=== PATIENT | male | born 1955 | race Caucasian/White ===

== ENCOUNTER 2019-08-22 02:08 | Emergency (ER) | payer OTHER ==
[~2019-08-22] VITALS: Ht 170.2 cm; Wt 83.9 kg
[2019-08-22 03:27] LABS: BASOPHILS ABSOLUTE AUTO 0.03 K/mm3 (0.00-0.23); BASOPHILS PERCENT AUTO 0 % (0-2); EOSINOPHILS ABSOLUTE AUTO 0.01 K/mm3 (0.00-0.68); EOSINOPHILS PERCENT AUTO 0 % (0-6); Hematocrit 42.8 % (37.0-53.0); Hemoglobin 14.6 g/dL (13.5-17.5); IMMATURE GRAN ABSOLUTE AUTO 0.07 K/mm3 (0.00-0.10); IMMATURE GRAN PERCENT AUTO 1 % (0-1); LYMPHOCYTES ABSOLUTE AUTO 1.15 K/mm3 (0.84-5.20); LYMPHOCYTES PERCENT AUTO 9 % (21-46); MONOCYTES ABSOLUTE AUTO 1.51 K/mm3 (0.16-1.47); MONOCYTES PERCENT AUTO 12 % (4-13); Mean Corpuscular HGB 31.5 pg (26.0-34.0); Mean Corpuscular HGB Conc 34.1 g/dL (31.5-36.5); Mean Corpuscular Volume 92 fL (80-100); NEUTROPHILS ABSOLUTE AUTO 10.32 K/mm3 (1.96-9.15); NEUTROPHILS PERCENT AUTO 79 % (41-73); Platelet Count 241 K/mm3 (150-400); RDW Coefficient Variation 14.3 % (11.7-14.2); RDW Standard Deviation 48.4 fL (35.1-46.3); Red Blood Cell Count 4.63 M/mm3 (4.30-5.90); White Blood Cell Count 13.09 K/mm3 (4.00-11.30)
[2019-08-22 03:42] LABS: Influenza A Positive (NEGATIVE); Influenza B Negative (NEGATIVE)
[2019-08-22 03:45] LABS: Alanine Aminotransfer (ALT/SGP 23 U/L (12-78); Albumin, Blood 3.4 g/dL (3.4-5.0); Alk Phos 90 U/L (50-136); Anion Gap 6 mmol/L (6-16); Aspartate Aminotrans (AST/SGOT 23 U/L (12-37); Bilirubin, Total 0.3 mg/dL (0.1-1.0); Blood Urea Nitrogen 19 mg/dL (8-24); Bun/Creatinine Ratio 22.9 (12.0-20.0); CO2, Blood 27 mmol/L (21-32); Calcium, Blood 8.5 mg/dL (8.5-10.1); Chloride, Blood 106 mmol/L (98-108); Creatinine, Blood 0.83 mg/dL (0.60-1.20); Globulin, Blood 3.5 g/dL (2.2-4.0); Glomerular Filtration Rate >60 (60-); Glucose, Blood 100 mg/dL (70-99); Potassium, Blood 3.5 mmol/L (3.5-5.5); Sodium, Blood 139 mmol/L (136-145); Total Protein, Blood 6.9 g/dL (6.4-8.2); Troponin I <0.015 ng/mL (0.000-0.040)
[2019-08-22] MEDS ORDERED: LISI20 PO (04:43)
[2019-08-22] MEDS ORDERED: METO50ER PO (04:43)
[2019-08-22] MEDS ORDERED: Mucinex600 MG PO (04:44)
[2019-08-22] MEDS ORDERED: Prednisone20 MG PO (06:27)
[2019-08-22] MEDS ORDERED: OSEL75CA PO (06:27)
== END 2019-08-22 06:50 | disposition home or self-care (01) ==
LOC: ER 02:08
PROVIDERS: Emergency Medicine
DX: J10.1 Influenza due to other identified influenza virus with other respiratory manifestations (principal); J44.1 Chronic obstructive pulmonary disease with (acute) exacerbation; Z88.0 Allergy status to penicillin
CPT/HCPCS: 36415; 71046; 80053; 84484; 85025; 87804; 93005; 93010; 94640; 96361; 96374; 99284-25; J1885; J7030; J7512

== ENCOUNTER 2019-11-25 20:24 | Inpatient (IN) | payer OTHER ==
[~2019-11-25] VITALS: Ht 172.7 cm; Wt 75.7 kg
[~2019-11-25 20:24] MED LIST: LISI20 PO; METO50ER PO; Mucinex600 MG PO; OSEL75CA PO; Prednisone20 MG PO
[2019-11-25 21:12] LABS: BASOPHILS ABSOLUTE AUTO 0.05 K/mm3 (0.00-0.23); BASOPHILS PERCENT AUTO 0 % (0-2); EOSINOPHILS ABSOLUTE AUTO 0.02 K/mm3 (0.00-0.68); EOSINOPHILS PERCENT AUTO 0 % (0-6); Hematocrit 47.5 % (37.0-53.0); Hemoglobin 16.6 g/dL (13.5-17.5); IMMATURE GRAN ABSOLUTE AUTO 0.08 K/mm3 (0.00-0.10); IMMATURE GRAN PERCENT AUTO 1 % (0-1); LYMPHOCYTES ABSOLUTE AUTO 3.85 K/mm3 (0.84-5.20); LYMPHOCYTES PERCENT AUTO 25 % (21-46); MONOCYTES ABSOLUTE AUTO 1.72 K/mm3 (0.16-1.47); MONOCYTES PERCENT AUTO 11 % (4-13); Mean Corpuscular HGB 31.6 pg (26.0-34.0); Mean Corpuscular HGB Conc 34.9 g/dL (31.5-36.5); Mean Corpuscular Volume 90 fL (80-100); Mean Platelet Volume 9.9 fL (9.1-12.4); NEUTROPHILS ABSOLUTE AUTO 9.42 K/mm3 (1.96-9.15); NEUTROPHILS PERCENT AUTO 62 % (41-73); Platelet Count 248 K/mm3 (150-400); RDW Coefficient Variation 14.1 % (11.7-14.2); RDW Standard Deviation 47.1 fL (35.1-46.3); Red Blood Cell Count 5.26 M/mm3 (4.30-5.90); White Blood Cell Count 15.14 K/mm3 (4.00-11.30)
[2019-11-25 21:35] LABS: Alanine Aminotransfer (ALT/SGP 95 U/L (12-78); Albumin, Blood 3.5 g/dL (3.4-5.0); Albumin/Globulin Ratio 0.9 (0.8-1.8); Alk Phos 104 U/L (50-136); Anion Gap 9 mmol/L (6-16); Aspartate Aminotrans (AST/SGOT 437 U/L (12-37); Bilirubin, Total 1.2 mg/dL (0.1-1.0); Blood Urea Nitrogen 12 mg/dL (8-24); Bun/Creatinine Ratio 16.6 (12.0-20.0); CO2, Blood 30 mmol/L (21-32); Calcium, Blood 8.7 mg/dL (8.5-10.1); Chloride, Blood 99 mmol/L (98-108); Creatinine, Blood 0.72 mg/dL (0.60-1.20); Globulin, Blood 3.8 g/dL (2.2-4.0); Glomerular Filtration Rate >60 (60-); Glucose, Blood 92 mg/dL (70-99); Potassium, Blood 3.4 mmol/L (3.5-5.5); Sodium, Blood 138 mmol/L (136-145); Total Protein, Blood 7.3 g/dL (6.4-8.2)
[2019-11-25] MEDS ORDERED: METO50ER PO (23:19)
[2019-11-25] MEDS ORDERED: Hytrin1 MG PO (23:20)
[2019-11-25] MEDS ORDERED: GUAI600T33 PO (23:20)
[2019-11-25] MEDS ORDERED: ALBU90OI INH (23:21)
[2019-11-25] MEDS ORDERED: Ipratropium Brom5 GM MC (23:22)
[2019-11-25 23:28] LABS: Creatine Kinase MB 177.3 ng/mL (0.0-3.6)
[2019-11-25 23:38] LABS: CPK Creatine Kinase 2227 U/L (39-308)
[2019-11-25 23:39] LABS: Troponin I >200.000 ng/mL (0.000-0.040)
--- NOTE | 2019-11-26 | NUR ---
PT TO ICU 16 @ 2244 WITH TECHNICAL DOCUMENTATION SPECIALIST RN, PT ALERT AND ORIENTED TO SELF, PLACE, EVENT AND FOLLOWING DIRECTIONS. O2 SATURATIONS>90% ON RA, PT DENIES SOB, PURSED LIP BREATHING NOTED. MONITOR SHOWS ST ELEVATIONS, HR 100-110, HTN WITH SBP 130'S-160'S. PT INITIALLY DENIED CP BUT REPORTED MILD 1/10 CHEST PRESSURE, @ 2300 PT REPORTS INCREASED PRESSURE TO 4/10, IMPROVED WITH NITRO PATCH PLACMENT. PT DENIES GI/ ISSUES, VOIDS INDEPENDENTLY WITH URINAL. PT SAWYER, REPOSITIONS SELF IN BED. TR BAND TO R RADIAL SITE, IN PLACE WITH 10CC AIR, SITE NON-TENDER, NO HEMATOMA NOTED, SEE HC CATH SITE MANAGEMENT.
--- NOTE | 2019-11-26 02:30 | NUR ---
PT WITH INCREASED WOB, PURSED LIP BREATHING, REPORTS SOB, APPEARS ANXIOUS, O2 SATURATIONS>92%, PT PLACED ON 6L PER NC FOR COMFORT. RT CALLED FOR BREATHING TREATMENT. CALL PLACED TO DR GOODMAN, ORDER FOR 20MG IV LASIX, TRAZADONE, AND BIPAP IF SOB CONTINUES, VERSED FOR ANXIETY R/T BIPAP. PT REPORTS IMPROVEMENT AFTER BREATHING TX AND LASIX ADMINISTRATION. PT RESTING AT THIS TIME.
--- NOTE | 2019-11-26 06:09 | NUR ---
CALL PLACED TO RODDY GOODMAN REGARDING MORNING EKG, NO NEW ORDERS AT THIS TIME.
[2019-11-26 07:14] LABS: BASOPHILS ABSOLUTE AUTO 0.02 K/mm3 (0.00-0.23); BASOPHILS PERCENT AUTO 0 % (0-2); EOSINOPHILS PERCENT AUTO 0 % (0-6); Hematocrit 41.8 % (37.0-53.0); Hemoglobin 14.2 g/dL (13.5-17.5); IMMATURE GRAN ABSOLUTE AUTO 0.07 K/mm3 (0.00-0.10); IMMATURE GRAN PERCENT AUTO 1 % (0-1); LYMPHOCYTES ABSOLUTE AUTO 1.59 K/mm3 (0.84-5.20); LYMPHOCYTES PERCENT AUTO 13 % (21-46); MONOCYTES ABSOLUTE AUTO 1.43 K/mm3 (0.16-1.47); MONOCYTES PERCENT AUTO 12 % (4-13); Mean Corpuscular HGB 30.9 pg (26.0-34.0); Mean Corpuscular Volume 91 fL (80-100); Mean Platelet Volume 9.9 fL (9.1-12.4); NEUTROPHILS ABSOLUTE AUTO 8.81 K/mm3 (1.96-9.15); NEUTROPHILS PERCENT AUTO 74 % (41-73); Platelet Count 230 K/mm3 (150-400); RDW Coefficient Variation 14.1 % (11.7-14.2); RDW Standard Deviation 47.3 fL (35.1-46.3); Red Blood Cell Count 4.59 M/mm3 (4.30-5.90); White Blood Cell Count 11.92 K/mm3 (4.00-11.30)
[2019-11-26 07:29] LABS: Anion Gap 6 mmol/L (6-16); Blood Urea Nitrogen 30 mg/dL (8-24); Bun/Creatinine Ratio 50.4 (12.0-20.0); CO2, Blood 28 mmol/L (21-32); Chloride, Blood 107 mmol/L (98-108); Glomerular Filtration Rate >60 (60-); Glucose, Blood 119 mg/dL (70-99); Potassium, Blood 3.6 mmol/L (3.5-5.5); Sodium, Blood 141 mmol/L (136-145)
--- NOTE | 2019-11-26 07:30 | NUR ---
SHIFT SUMMARY PT RESTED WELL POST TRAZADONE ADMINISTRATION, REMAINS AROUSABLE, ORIENTED TO SELF, EVENT, LOCATION AND FOLLOWING DIRECTIONS. PT ON 3L PER NC, BIPAP NOT NEED THIS SHIFT FOR SOB. MONITOR SHOWS ST ELEVATIONS, EKG THIS AM, SEE PREVIOUS NOTE, HR 120-130'S. PT DENIES CP AND REPORTS SOB MUCH IMPROVED. R RADIAL SITE C/D/I WITH OPSITE, WRIST IMMOBILIZER IN PLACE. PT TOLERATES PO INTAKE, SWALLOWS PILLS WHOLE, DENIES NAUSEA. VOIDS INDEPENDENTLY IN URINAL, REPOSITIONS SELF IN BED. REPORT GIVEN TO ERNESTINA MEZA.
[2019-11-26 07:35] LABS: Creatine Kinase MB 94.6 ng/mL (0.0-3.6)
--- NOTE | 2019-11-26 07:52 | NUR ---
0715-ASSUMED CARE OF PT. PT IS ALERT AND ORIENTED. DENIES CHEST PAIN. PT STILL ON HAVING SHORTNESS OF BREATH. MORE WITH EXERTION. ON 6LPM NC. R RADIAL ACCESS SITE IS STABLE. SCATTERED BRUISES NOTED AT THE RIGHT FOREARM.
[2019-11-26 07:59] LABS: Creatine Kinase MB Index 5.3 (0.0-4.0); Troponin I 89.4 ng/mL (0.000-0.040)
--- NOTE | 2019-11-26 09:10 | NUR ---
0805-DR. GOODMAN CAME BY TO SEE PATIENT. UPDATED HER OF PT'S HR AND BLOOD PRESSURE. LUNG SOUNDS. ORDERS RECEIVED. 0815-DR. GOODMAN AT BEDSIDE AT THIS TIME. PT WILL BE NPO, POSSIBLE CARDIOVERSION IF PT DOES NOT RESPOND TO AMIODARONE DRIP.
--- NOTE | 2019-11-26 10:08 | NUR ---
CALLED DR. GOODMAN TWICE STILL HAVE NOT RETURNED THIS NURSE'S CALL.
--- NOTE | 2019-11-26 10:21 | NUR ---
DR. GOODMAN CALLED BACK. INFORMED HER REGARDING PT'S BLOOD PRESSURE IN THE 70s-80s SYSTOLIC. PT HAS BEEN ASYMPTOMATIC WITH THIS LOW BLOOD PRESSURE. NO ORDERS RECEIEVED. INFORMED HER OF PT'S HR STILL IN THE 130s AND AFLUTTER DESPITE THE AMIODARONE DRIP.
--- NOTE | 2019-11-26 10:36 | NUR ---
PLACED PT'S STENT IN THE BAG WITH PT'S BELONGINGS. PLACED PT'S WATCH IN PT'S PANT POCKET.
--- NOTE | 2019-11-26 12:06 | NUR ---
Patient is lying in bed and alert. Patient tells me his medical history and the medical his of his and the struggles they have been going through and the affect all this has had on their thoughts and emotions. We talk about God, patient spiritual journey, their current marquita crisis and the long road ahead for both he and his . I listen empathically, normalize patient's experience, reinforce helpful attitudes and practices and provide companionship, pastoral service counselor and prayer. Patient responds well and shows signs of restored marquita.
--- NOTE | 2019-11-26 12:45 | NUR ---
ECHOTECH AT BEDSIDE DOING ECHOCARDIOGRAM.
--- NOTE | 2019-11-26 16:00 | NUR ---
1556-DR. GOODMAN CALLED REGARDING PATIENT. INFORMED HER OF PT'S BLOOD PRESSURE STILL DIPS IN THE 70s SYSTOLIC AT TIMES. PT IS STILL ASYMPTOMATIC. HR STILL IN THE 120s DESPITE AMIODARONE BOLUS WHICH IS STILL INFUSING AT THIS TIME. ORDERS RECEIVED.
[2019-11-26 16:46] LABS: Creatine Kinase MB 35.6 ng/mL (0.0-3.6)
[2019-11-26 17:02] LABS: Creatine Kinase MB Index 3.5 (0.0-4.0); Troponin I 46.7 ng/mL (0.000-0.040)
--- NOTE | 2019-11-26 18:15 | NUR ---
1800-PTT 130.3. HEPARIN WAS STOPPED. NOTIFIED [facility] PHARMACIST.
--- NOTE | 2019-11-26 18:17 | NUR ---
SHIFT SUMMARY: PT'S HR STILL IN THE 120S-130S. STILL ON AMIODARONE AT 0.5MG/MIN. HEPARIN DRIP WAS STOPPED AT 1800 DUE TO ELEVATED PTT @ 130.3. WILL RESTART AT 1900 PER PHARMACY. PT DENIES CHEST PAIN AT THIS TIME. PT'S BLOOD PRESSURE CURRENTLY AT 129/88. PT'S BP DROPS TO 70s-80s SYSTOLIC AT TIMES. PT HAS BEEN SYMPTOMATIC THEN. R RADIAL ACCESS SITE STABLE. PT WILL BE NPO POST- MIDNIGHT FOR POSSIBLE PROCEDURE IN THE MORNING. AFEBRILE. STILL SHORTNESS OF BREATH NOTED MOSTLY ON EXERTION. AFEBRILE. TROPONIN STILL ELEVATED BUT TRENDING DOWN.
--- NOTE | 2019-11-26 19:07 | NUR ---
HEPARIN DRIP WAS RESTARTED AT 1902 AT 13 UNITS/KG/HR. REPORT GIVEN TO SUSANA FOX
--- NOTE | 2019-11-26 19:33 | NUR ---
ASSUMED PT CARE FROM ERNESTINA HERNANDEZ RN AT 1915 PT RESTING IN BED TALKING ON PHONE. BEDSIDE REPORT GIVEN. AMIODARONE INFUSING AT 0.5MG/MIN AND HEPARIN GTT RESTARTED AT 13 UNITS/KG/HR WITH A WT OF 77KG. VERIFIED WITH ERNESTINA HERNANDEZ. R RADIAL SITE IS STABLE, SOFT, NON-TENDER, AND NO OOZING NOTED. ARM BOARD REMAINS IN PLACE. SCATTERED BRUISING NOTED TO RIGHT WRIST/FOREARM. PT APPEARS ALERT AND ORIENTED AND IS ABLE TO MAKE NEEDS KNOWN. PT REMAINS IN AFLUTTER WITH HR 120'S. SBP'S 90-120'S; SEE FLOWSHEET. 3L OXYGEN WITH BIOX 97%. PT DENIES CHEST PAIN, WELL SOB AT THIS TIME. CALL LIGHT WITHIN REACH. PT ABLE TO MAKE NEEDS KNOWN.
[2019-11-27 02:09] LABS: BASOPHILS ABSOLUTE AUTO 0.02 K/mm3 (0.00-0.23); BASOPHILS PERCENT AUTO 0 % (0-2); EOSINOPHILS ABSOLUTE AUTO 0.06 K/mm3 (0.00-0.68); EOSINOPHILS PERCENT AUTO 1 % (0-6); Hematocrit 38.6 % (37.0-53.0); IMMATURE GRAN ABSOLUTE AUTO 0.07 K/mm3 (0.00-0.10); IMMATURE GRAN PERCENT AUTO 1 % (0-1); LYMPHOCYTES ABSOLUTE AUTO 2.11 K/mm3 (0.84-5.20); LYMPHOCYTES PERCENT AUTO 21 % (21-46); MONOCYTES ABSOLUTE AUTO 1.07 K/mm3 (0.16-1.47); MONOCYTES PERCENT AUTO 11 % (4-13); Mean Corpuscular HGB 31.4 pg (26.0-34.0); Mean Corpuscular HGB Conc 33.7 g/dL (31.5-36.5); Mean Corpuscular Volume 93 fL (80-100); Mean Platelet Volume 9.9 fL (9.1-12.4); NEUTROPHILS ABSOLUTE AUTO 6.87 K/mm3 (1.96-9.15); NEUTROPHILS PERCENT AUTO 67 % (41-73); Platelet Count 199 K/mm3 (150-400); RDW Coefficient Variation 14.3 % (11.7-14.2); RDW Standard Deviation 49.6 fL (35.1-46.3); Red Blood Cell Count 4.14 M/mm3 (4.30-5.90)
[2019-11-27 02:25] LABS: Anion Gap 4 mmol/L (6-16); Blood Urea Nitrogen 25 mg/dL (8-24); Bun/Creatinine Ratio 27.1 (12.0-20.0); CO2, Blood 34 mmol/L (21-32); Calcium, Blood 8.2 mg/dL (8.5-10.1); Chloride, Blood 105 mmol/L (98-108); Creatinine, Blood 0.92 mg/dL (0.60-1.20); Glomerular Filtration Rate >60 (60-); Glucose, Blood 132 mg/dL (70-99); Potassium, Blood 3.5 mmol/L (3.5-5.5); Sodium, Blood 143 mmol/L (136-145)
--- NOTE | 2019-11-27 05:06 | NUR ---
END OF SHIFT SUMMARY NO SIGNFICANT CHANGES SINCE LAST ENTRY. PT HAS BEEN IN AND OUT OF AFLUTTER. VERY HARD TO DETERMINE WHEN PT CONVERTS HIS A FLUTTER CAN BE HARD TO DIFFERENTIATE D/T VERY MINUSCULE CHANGES. CURRENTLY NSR WITH BBB; HR 90-100'S. OXYGEN AT 2L VIA NC. PT HAS DENIED CHEST PAIN, N/V, AND SOB ALL SHIFT. NOTICED THAT PT BECOMES VERY DIAPHORETIC DURING SLEEP IN WHICH HE STATES THIS IS NORMAL FOR HIM. PT HAS BEEN NPO SINCE MIDNIGHT. MINIMAL URINE OUTPUT; 150CC EMPTIED FROM URINAL THIS SHIFT; DARK, YELLOW. PT IS ALERT AND ORIENTED AND ABLE TO MAKE NEEDS KNOWN. WILL CONTINUE TO MONITOR UNTIL REPORT IS HANDED OFF TO ONCOMING RN.
--- NOTE | 2019-11-27 07:15 | NUR ---
BEGINNING OF SHIFT Assumed care at 0700. Bedside report received from Cony MEZA. Pt A&O x 4. Pt on 2 LPM NC. Wears RA at baseline. Atrial flutter per monitor. Rate 105-115. BP stable. Amiodarone and heparin infusing per orders.
--- NOTE | 2019-11-27 09:14 | NUR ---
DR SEVERINO IN TO SEE PT Provider states LEON will not be done today. Plan to stop IV amiodarone and heparin. Pt states she would like pt to remain in the ICU today. Pt okay to eat breakfast.
--- NOTE | 2019-11-27 11:54 | NUR ---
UPDATE IV heparin stopped. Pt titrated to room air. SpO2 97%.
--- NOTE | 2019-11-27 17:30 | NUR ---
SUMMARY No acute changes since initial assessment. Pt OOB several times this shift to sit up in chair. Tolerates activity well. Pt currently on room air. On room air for majority of day. Pt remains in atrial flutter with HR between 105 and 115. BP stable. Will continue to closely monitor until care handoff and bedside report with oncoming RN.
--- NOTE | 2019-11-27 19:09 | NUR ---
ASSUMED PT CARE AT 1900 FROM SUSANA KAUFFMAN PT SITTING UP IN BED. ALERT AND ORIENTED AND ABLE TO MAKE NEEDS KNOWN. NSR WITH BBB; HR 90-100'S. BP'S STABLE; SEE FLOWSHEET. PT IS ON ROOM AIR WITH OXYGEN SATURATIONS AT 95%. R RADIAL SITE IS STABLE. PT DENIES ANY CHEST PAIN, N/V, WELL SOB AT THIS TIME. PT VOICED CONCERN REGARDING HIS CAR THAT IS PARKED OUT IN A HANDICAPPED PARKING SPACE AND WANTED TO ENSURE IT DIDN'T GET TOWED. INFORMED PT THAT I WOULD INFORM SECURITY IF THEY DO A WALK THROUGH [place]; HOWEVER, THERE SHOULDN'T BE A PROBLEM LONG HIS HANDICAP PASS IS HANGING IN CAR. WHICH HE STATED IT WAS. CALL LIGHT WITHIN REACH.
[2019-11-28 04:11] LABS: BASOPHILS ABSOLUTE AUTO 0.03 K/mm3 (0.00-0.23); BASOPHILS PERCENT AUTO 0 % (0-2); EOSINOPHILS ABSOLUTE AUTO 0.05 K/mm3 (0.00-0.68); EOSINOPHILS PERCENT AUTO 0 % (0-6); Hematocrit 36.9 % (37.0-53.0); Hemoglobin 12.5 g/dL (13.5-17.5); IMMATURE GRAN ABSOLUTE AUTO 0.07 K/mm3 (0.00-0.10); IMMATURE GRAN PERCENT AUTO 1 % (0-1); LYMPHOCYTES PERCENT AUTO 17 % (21-46); MONOCYTES ABSOLUTE AUTO 1.01 K/mm3 (0.16-1.47); MONOCYTES PERCENT AUTO 8 % (4-13); Mean Corpuscular HGB 31.4 pg (26.0-34.0); Mean Corpuscular HGB Conc 33.9 g/dL (31.5-36.5); Mean Corpuscular Volume 93 fL (80-100); Mean Platelet Volume 10.2 fL (9.1-12.4); NEUTROPHILS ABSOLUTE AUTO 8.79 K/mm3 (1.96-9.15); NEUTROPHILS PERCENT AUTO 73 % (41-73); Platelet Count 188 K/mm3 (150-400); RDW Coefficient Variation 14.1 % (11.7-14.2); RDW Standard Deviation 47.8 fL (35.1-46.3); Red Blood Cell Count 3.98 M/mm3 (4.30-5.90); White Blood Cell Count 12.05 K/mm3 (4.00-11.30)
[2019-11-28 04:29] LABS: Anion Gap 5 mmol/L (6-16); Blood Urea Nitrogen 24 mg/dL (8-24); Bun/Creatinine Ratio 30.9 (12.0-20.0); CO2, Blood 31 mmol/L (21-32); Calcium, Blood 8.2 mg/dL (8.5-10.1); Chloride, Blood 108 mmol/L (98-108); Creatinine, Blood 0.78 mg/dL (0.60-1.20); Glomerular Filtration Rate >60 (60-); Glucose, Blood 114 mg/dL (70-99); Potassium, Blood 3.2 mmol/L (3.5-5.5); Sodium, Blood 144 mmol/L (136-145)
--- NOTE | 2019-11-28 05:46 | NUR ---
END OF SHIFT SUMMARY NO SIGNIFICANT CHANGES NOTED THIS SHIFT. PT HAS REMAINED ON ROOM AIR WITH OXYGEN SATURATIONS MID 90'S. NSR WITH BBB WITH HR 80'S MOST OF SHIFT. BP'S STABLE; SEE FLOWSHEET. HR INCREASES WITH EXERTION, WELL PT BECOMES SOB EASILY WITH MINIMAL ACTIVITY. PURSED LIP BREATHING AND TRIPOD POSITIONING NOTED WHEN WORK OF BREATHING INCREASES. PT HAS BEEN ABLE TO SELF POSITION IN BED AND UTILIZES CALL LIGHT APPROPRIATELY. PT HAS DENIED CHEST PAIN THIS SHIFT. WILL CONTINUE TO MONITOR UNTIL REPORT IS HANDED OFF TO ONCOMING RN.
--- NOTE | 2019-11-28 07:54 | NUR ---
DR SEVERINO IN TO SEE PT States plan for echocardiogram today. States pt could potentially go home, but [facility], pt may not be discharged until tomorrow as he cannot miss a single dose of xarelto or brilinta.
--- NOTE | 2019-11-28 10:00 | NUR ---
UPDATE Pt okay to discharge today with samples of brilinta and xarelto. Other medications can be called in to retail pharmacy until pt can obtain meds from [place].
[2019-11-28] MEDS ORDERED: Metoprolol Tart25 MG PO (10:06)
[2019-11-28] MEDS ORDERED: Pacerone400 MG PO (10:09)
[2019-11-28] MEDS ORDERED: ASPI81CH PO (10:10)
[2019-11-28] MEDS ORDERED: NITR.4SL SL (10:11)
[2019-11-28] MEDS ORDERED: PANT40 PO (10:11)
[2019-11-28] MEDS ORDERED: ATOR80 PO (10:11)
[2019-11-28] MEDS ORDERED: TICA90TA PO (10:12)
[2019-11-28] MEDS ORDERED: XARELTO20 MG PO (10:12)
--- NOTE | 2019-11-28 10:53 | NUR ---
Echocardiogram completed.
--- NOTE | 2019-11-28 13:02 | NUR ---
DISCHARGE Pt discharged from ICU 16 at 1250. Pt accompanied to personal vehicle via wheelchair accomapnied by JERILYN Sarmiento. Medication orders faxed to [facility]. Two days worth of amiodarone, atorvastatin, and pantoprazole called to [facility] - per telephone orders from Dr Carr. Originally ordered HS metoprolol cancelled per telephone orders from Dr Carr. Pt has metoprolol at home for AM dose. Pt provided with two sample bottles each of rivaroxaban and ticagrelor. Pt verbalized understanding that he is to go to [facility] immediately after discharge and then obtain medications from [place] tomorrow morning. Pt verbalized understanding of remaining on ticagrelor and aspirin until civil cad designer states otherwise. Pt verbalized understanding that he must ensure he has adequate supply of these medications for vacations or holidays. Pt verbalized understanding of risks of missing these medications for even one day. Pt discharged with stent card in personal posession. Verbalized understanding that this is to be kept in his wallet. Pt verbalizes understanding that he is to follow up with cardiololgy and cardiac rehab. Pt verifies that [phone] is a good phone number to be reached at. Pt met with video game producer, Ingrid Romero, prior to discharge for cardiac diet education.
--- NOTE | 2019-11-28 15:47 | NUR ---
PT CALLED UNIT States he routinely takes 5 mg of terazosin every night. Asked if its okay to keep taking it. This RN placed call to Dr Carr to ask. Pt okay to keep taking this medication. Pt updated.
== END 2019-11-28 13:00 | disposition home or self-care (01) | DRG 247 ==
LOC: ER 20:24 → ICUW 21:23
PROVIDERS: Physician Assistant; ADMIT Internal Medicine Interventional Cardiology
PROC: 027035Z Dilation of Coronary Artery, One Artery with Two Drug-eluting Intraluminal Devices, Percutaneous Approach (ICD-10-PCS; principal; 2019-11-25)
PROC: 02703ZZ Dilation of Coronary Artery, One Artery, Percutaneous Approach (ICD-10-PCS; 2019-11-25)
PROC: B240ZZ3 Ultrasonography of Single Coronary Artery, Intravascular (ICD-10-PCS; 2019-11-25)
PROC: B2111ZZ Fluoroscopy of Multiple Coronary Arteries using Low Osmolar Contrast (ICD-10-PCS; 2019-11-25)
DX: I21.02 ST elevation (STEMI) myocardial infarction involving left anterior descending coronary artery (principal); I48.92 Unspecified atrial flutter; I50.20 Unspecified systolic (congestive) heart failure; J43.9 Emphysema, unspecified; I51.3 Intracardiac thrombosis, not elsewhere classified; I45.10 Unspecified right bundle-branch block; F17.210 Nicotine dependence, cigarettes, uncomplicated; E78.5 Hyperlipidemia, unspecified; I11.0 Hypertensive heart disease with heart failure; I50.9 Heart failure, unspecified
CPT/HCPCS: 36415; 71045; 80048; 80053; 82550; 82553; 83036; 83690; 83880; 84484; 85025; 85347; 85730; 92941; 92978; 93005; 93010; 93308; 93321; 94640; 96374; 99152; 99153; 99285-25; A9270; A9270-GY; C1725; C1753; C1769; C1874; C1887; C1894; C8929; J0282; J1644; J1940; J2250; J3010; J7030; J7040; J7060; Q9957; Q9967

== ENCOUNTER 2020-12-25 03:55 | Emergency (ER) | payer OTHER ==
[~2020-12-25] VITALS: Ht 172.7 cm; Wt 81.7 kg
[~2020-12-25 03:55] MED LIST changes: +ALBU90OI INH; +ASPI81CH PO; +ATOR80 PO; +GUAI600T33 PO; +Hytrin1 MG PO; +Ipratropium Brom5 GM MC; +Metoprolol Tart25 MG PO; +NITR.4SL SL; +PANT40 PO; +Pacerone400 MG PO; +TICA90TA PO; +XARELTO20 MG PO
[2020-12-25 04:55] LABS: BASOPHILS ABSOLUTE AUTO 0.02 K/mm3 (0.00-0.23); BASOPHILS PERCENT AUTO 0 % (0-2); EOSINOPHILS ABSOLUTE AUTO 0.02 K/mm3 (0.00-0.68); EOSINOPHILS PERCENT AUTO 0 % (0-6); Hematocrit 34.1 % (37.0-53.0); Hemoglobin 10.8 g/dL (13.5-17.5); IMMATURE GRAN ABSOLUTE AUTO 0.02 K/mm3 (0.00-0.10); IMMATURE GRAN PERCENT AUTO 0 % (0-1); LYMPHOCYTES ABSOLUTE AUTO 2.08 K/mm3 (0.84-5.20); LYMPHOCYTES PERCENT AUTO 27 % (21-46); MONOCYTES ABSOLUTE AUTO 0.91 K/mm3 (0.16-1.47); MONOCYTES PERCENT AUTO 12 % (4-13); Mean Corpuscular HGB 29.5 pg (26.0-34.0); Mean Corpuscular HGB Conc 31.7 g/dL (31.5-36.5); Mean Corpuscular Volume 93 fL (80-100); Mean Platelet Volume 8.8 fL (9.1-12.4); NEUTROPHILS ABSOLUTE AUTO 4.56 K/mm3 (1.96-9.15); NEUTROPHILS PERCENT AUTO 60 % (41-73); Platelet Count 317 K/mm3 (150-400); RDW Coefficient Variation 14.8 % (11.7-14.2); RDW Standard Deviation 51.2 fL (35.1-46.3); Red Blood Cell Count 3.66 M/mm3 (4.30-5.90); White Blood Cell Count 7.61 K/mm3 (4.00-11.30)
[2020-12-25 05:19] LABS: Anion Gap 5 mmol/L (6-16); Blood Urea Nitrogen 12 mg/dL (8-24); Bun/Creatinine Ratio 11.9 (12.0-20.0); CO2, Blood 27 mmol/L (21-32); Calcium, Blood 8.4 mg/dL (8.5-10.1); Chloride, Blood 108 mmol/L (98-108); Creatinine, Blood 1.01 mg/dL (0.60-1.20); Glomerular Filtration Rate >60 (60-); Glucose, Blood 84 mg/dL (70-99); Potassium, Blood 3.4 mmol/L (3.5-5.5); Sodium, Blood 140 mmol/L (136-145)
[2020-12-25] MEDS ORDERED: LIDO700A20 TOP (06:08)
== END 2020-12-25 06:20 | disposition home or self-care (01) ==
LOC: ER 03:55
PROVIDERS: Emergency Medicine
DX: R07.89 Other chest pain (principal); R91.1 Solitary pulmonary nodule; J43.9 Emphysema, unspecified; I10 Essential (primary) hypertension; E78.00 Pure hypercholesterolemia, unspecified; I25.2 Old myocardial infarction; Z88.0 Allergy status to penicillin; Z79.82 Long term (current) use of aspirin; Z79.899 Other long term (current) drug therapy; Z87.891 Personal history of nicotine dependence; W01.190A Fall on same level from slipping, tripping and stumbling with subsequent striking against furniture, initial encounter
CPT/HCPCS: 71260; 80048; 85025; 99284-25; A9270; Q9967

== ENCOUNTER 2021-01-31 01:07 | Emergency (ER) | payer OTHER ==
[~2021-01-31] VITALS: Ht 172.7 cm; Wt 77.1 kg
[~2021-01-31 01:07] MED LIST changes: +LIDO700A20 TOP
[2021-01-31 02:00] LABS: BASOPHILS ABSOLUTE AUTO 0.02 K/mm3 (0.00-0.23); BASOPHILS PERCENT AUTO 0 % (0-2); EOSINOPHILS ABSOLUTE AUTO 0.03 K/mm3 (0.00-0.68); EOSINOPHILS PERCENT AUTO 0 % (0-6); Hematocrit 36.9 % (37.0-53.0); Hemoglobin 11.3 g/dL (13.5-17.5); IMMATURE GRAN ABSOLUTE AUTO 0.03 K/mm3 (0.00-0.10); IMMATURE GRAN PERCENT AUTO 0 % (0-1); LYMPHOCYTES ABSOLUTE AUTO 2.04 K/mm3 (0.84-5.20); LYMPHOCYTES PERCENT AUTO 29 % (21-46); MONOCYTES ABSOLUTE AUTO 0.68 K/mm3 (0.16-1.47); MONOCYTES PERCENT AUTO 10 % (4-13); Mean Corpuscular HGB 27.2 pg (26.0-34.0); Mean Corpuscular HGB Conc 30.6 g/dL (31.5-36.5); Mean Corpuscular Volume 89 fL (80-100); Mean Platelet Volume 9.1 fL (9.1-12.4); NEUTROPHILS ABSOLUTE AUTO 4.24 K/mm3 (1.96-9.15); NEUTROPHILS PERCENT AUTO 60 % (41-73); Platelet Count 243 K/mm3 (150-400); RDW Coefficient Variation 16.3 % (11.7-14.2); RDW Standard Deviation 53.1 fL (35.1-46.3); Red Blood Cell Count 4.15 M/mm3 (4.30-5.90); White Blood Cell Count 7.04 K/mm3 (4.00-11.30)
[2021-01-31 02:25] LABS: Alanine Aminotransfer (ALT/SGP 24 U/L (12-78); Albumin, Blood 3.4 g/dL (3.4-5.0); Albumin/Globulin Ratio 0.9 (0.8-1.8); Alk Phos 109 U/L (50-136); Anion Gap 5 mmol/L (6-16); Aspartate Aminotrans (AST/SGOT 31 U/L (12-37); Bilirubin, Total 0.7 mg/dL (0.1-1.0); Blood Urea Nitrogen 20 mg/dL (8-24); Bun/Creatinine Ratio 21.1 (12.0-20.0); CO2, Blood 29 mmol/L (21-32); Calcium, Blood 8.2 mg/dL (8.5-10.1); Chloride, Blood 107 mmol/L (98-108); Creatinine, Blood 0.95 mg/dL (0.60-1.20); Globulin, Blood 3.7 g/dL (2.2-4.0); Glomerular Filtration Rate >60 (60-); Glucose, Blood 94 mg/dL (70-99); Potassium, Blood 3.4 mmol/L (3.5-5.5); Sodium, Blood 141 mmol/L (136-145); Total Protein, Blood 7.1 g/dL (6.4-8.2); Troponin I <0.015 ng/mL (0.000-0.040)
[2021-01-31] MEDS ORDERED: Colace250 MG PO (07:08)
[2021-01-31] MEDS ORDERED: HYDR1TAB94 PO (07:08)
[2021-01-31] MEDS ORDERED: ONDA4ODT MM (07:08)
== END 2021-01-31 07:19 | disposition home or self-care (01) ==
LOC: ER 01:07
PROVIDERS: Emergency Medicine
DX: K85.90 Acute pancreatitis without necrosis or infection, unspecified (principal); J43.9 Emphysema, unspecified; I10 Essential (primary) hypertension; E78.00 Pure hypercholesterolemia, unspecified; I25.2 Old myocardial infarction; Z88.0 Allergy status to penicillin; Z79.82 Long term (current) use of aspirin; Z79.899 Other long term (current) drug therapy; Z87.891 Personal history of nicotine dependence
CPT/HCPCS: 36415; 71046; 74177; 76705; 80053; 83690; 83880; 84484; 85025; 93005; 93010; 96374-59; 96375; 96376; 99285-25; A9270; J1170; J2405; Q9967

== ENCOUNTER 2021-02-27 08:59 | Inpatient (IN) | payer OTHER ==
[~2021-02-27] VITALS: Ht 172.7 cm; Wt 79.3 kg
[~2021-02-27 08:59] MED LIST changes: +Colace250 MG PO; +HYDR1TAB94 PO; +ONDA4ODT MM
[2021-02-27 09:22] LABS: BASOPHILS ABSOLUTE AUTO 0.02 K/mm3 (0.00-0.23); BASOPHILS PERCENT AUTO 0 % (0-2); EOSINOPHILS ABSOLUTE AUTO 0.01 K/mm3 (0.00-0.68); EOSINOPHILS PERCENT AUTO 0 % (0-6); Hematocrit 33.7 % (37.0-53.0); Hemoglobin 10.4 g/dL (13.5-17.5); IMMATURE GRAN ABSOLUTE AUTO 0.04 K/mm3 (0.00-0.10); IMMATURE GRAN PERCENT AUTO 0 % (0-1); LYMPHOCYTES ABSOLUTE AUTO 1.58 K/mm3 (0.84-5.20); LYMPHOCYTES PERCENT AUTO 12 % (21-46); MONOCYTES ABSOLUTE AUTO 1.23 K/mm3 (0.16-1.47); MONOCYTES PERCENT AUTO 10 % (4-13); Mean Corpuscular HGB 25.8 pg (26.0-34.0); Mean Corpuscular HGB Conc 30.9 g/dL (31.5-36.5); Mean Corpuscular Volume 84 fL (80-100); Mean Platelet Volume 9.2 fL (9.1-12.4); NEUTROPHILS PERCENT AUTO 78 % (41-73); Platelet Count 317 K/mm3 (150-400); RDW Coefficient Variation 16.6 % (11.7-14.2); RDW Standard Deviation 51.1 fL (35.1-46.3); Red Blood Cell Count 4.03 M/mm3 (4.30-5.90); White Blood Cell Count 12.88 K/mm3 (4.00-11.30)
[2021-02-27 09:55] LABS: Alanine Aminotransfer (ALT/SGP 27 U/L (12-78); Albumin, Blood 3.2 g/dL (3.4-5.0); Albumin/Globulin Ratio 0.9 (0.8-1.8); Alk Phos 105 U/L (50-136); Anion Gap 5 mmol/L (6-16); Aspartate Aminotrans (AST/SGOT 21 U/L (12-37); Bilirubin, Total 0.7 mg/dL (0.1-1.0); Blood Urea Nitrogen 19 mg/dL (8-24); Bun/Creatinine Ratio 20.3 (12.0-20.0); CO2, Blood 27 mmol/L (21-32); Calcium, Blood 8.5 mg/dL (8.5-10.1); Chloride, Blood 109 mmol/L (98-108); Creatinine, Blood 0.94 mg/dL (0.60-1.20); Globulin, Blood 3.6 g/dL (2.2-4.0); Glomerular Filtration Rate >60 (60-); Glucose, Blood 86 mg/dL (70-99); Potassium, Blood 3.5 mmol/L (3.5-5.5); Sodium, Blood 141 mmol/L (136-145); Total Protein, Blood 6.8 g/dL (6.4-8.2)
[2021-02-27 11:49] LABS: Cholesterol 110 mg/dL (50-200); Triglycerides 46 mg/dL (30-160)
[2021-02-27] MEDS ORDERED: ALBU90OI INH (12:06)
[2021-02-27] MEDS ORDERED: Amiodarone HCl200 MG PO (12:06)
[2021-02-27] MEDS ORDERED: Aspir 8181 MG PO (12:06)
[2021-02-27] MEDS ORDERED: CLOP75 PO (12:07)
[2021-02-27] MEDS ORDERED: ATOR40TA PO (12:07)
[2021-02-27] MEDS ORDERED: FISH OIL 1,2001 EAC7 PO (12:07)
[2021-02-27] MEDS ORDERED: DULERA 200 MCG-13 GM INH (12:08)
[2021-02-27] MEDS ORDERED: GUAI600T33 PO (12:08)
[2021-02-27] MEDS ORDERED: HYDROCODONE-AC1 EA10 PO (12:09)
[2021-02-27] MEDS ORDERED: NITR.4SL SL (12:10)
[2021-02-27] MEDS ORDERED: ISOSORBIDE MONO60 MG PO (12:10)
[2021-02-27] MEDS ORDERED: Hair, Skin & N1 EACH PO (12:10)
[2021-02-27] MEDS ORDERED: METO50 PO (12:10)
[2021-02-27] MEDS ORDERED: SPIRIVA RESPIMAT4 G3 INH (12:11)
[2021-02-27] MEDS ORDERED: TERA5 PO (12:11)
--- NOTE | 2021-02-27 15:00 | NUR ---
PT ARRIVED FROM ER VIA W/C. ABLE TO STAND AND TRANSFER TO THE BED. ORIENTED TO ROOM AND CALL SYSTEM. BED IN LOWEST POSITION AND CALL GRIMM IN REACH. WILL MONITOR AND CHECK FREQUENTLY
[2021-02-27] MEDS ORDERED: LISI20 PO (15:49)
--- NOTE | 2021-02-27 18:21 | NUR ---
PT REMAINS A/O, HE IS KAW, NO HEARING AIDS. PLEASANT AND COOPERATIVE, USES CALL GRIMM APPROPRIATELY. PT IS INDEPENDENT IN THE ROOM, REPORTS EPIGASTRIC PAIN, RECEIVED 50 OLIVIA OF IV FENTANYL AT APPROX 1800, WILL MONITOR FOR EFFECTIVENESS.
--- NOTE | 2021-02-27 19:44 | NUR ---
CALLED HOSPITALIST VERIFIED THAT I CAN GIVE PT HIS PO MED WITH A SIP OF WATER, DESPITE NPO STATUS
[2021-02-28 03:23] LABS: Stool Occult Blood Guaiac 1 Neg (Neg)
--- NOTE | 2021-02-28 05:05 | NUR ---
SHIFT SUMMARY ADMITTED FOR ACUTE PANCREATITIS. FULL CODE. STOOL SAMPLE RETRIEVED THIS SHIFT, NEGATIVE FOR GUAIAC. HE IS INDEPENDENT IN THE ROOM. NS INFUSING ORDERED. I HAVE GIVEN IV PAIN MEDICATION THIS SHIFT. HE IS NPO. NO NEW CONCERNS THIS SHIFT
[2021-02-28 05:39] LABS: BASOPHILS ABSOLUTE AUTO 0.03 K/mm3 (0.00-0.23); BASOPHILS PERCENT AUTO 0 % (0-2); EOSINOPHILS ABSOLUTE AUTO 0.05 K/mm3 (0.00-0.68); EOSINOPHILS PERCENT AUTO 1 % (0-6); Hematocrit 32.8 % (37.0-53.0); IMMATURE GRAN ABSOLUTE AUTO 0.03 K/mm3 (0.00-0.10); IMMATURE GRAN PERCENT AUTO 0 % (0-1); LYMPHOCYTES ABSOLUTE AUTO 1.13 K/mm3 (0.84-5.20); LYMPHOCYTES PERCENT AUTO 13 % (21-46); MONOCYTES ABSOLUTE AUTO 0.78 K/mm3 (0.16-1.47); MONOCYTES PERCENT AUTO 9 % (4-13); Mean Corpuscular HGB 25.6 pg (26.0-34.0); Mean Corpuscular HGB Conc 30.5 g/dL (31.5-36.5); Mean Corpuscular Volume 84 fL (80-100); Mean Platelet Volume 9.4 fL (9.1-12.4); NEUTROPHILS ABSOLUTE AUTO 6.85 K/mm3 (1.96-9.15); NEUTROPHILS PERCENT AUTO 77 % (41-73); Platelet Count 276 K/mm3 (150-400); RDW Coefficient Variation 16.7 % (11.7-14.2); RDW Standard Deviation 51.7 fL (35.1-46.3); Red Blood Cell Count 3.91 M/mm3 (4.30-5.90); White Blood Cell Count 8.87 K/mm3 (4.00-11.30)
[2021-02-28 05:58] LABS: Alanine Aminotransfer (ALT/SGP 23 U/L (12-78); Albumin, Blood 2.7 g/dL (3.4-5.0); Albumin/Globulin Ratio 0.8 (0.8-1.8); Alk Phos 96 U/L (50-136); Anion Gap 6 mmol/L (6-16); Aspartate Aminotrans (AST/SGOT 19 U/L (12-37); Bilirubin, Total 0.6 mg/dL (0.1-1.0); Blood Urea Nitrogen 12 mg/dL (8-24); Bun/Creatinine Ratio 14.7 (12.0-20.0); CO2, Blood 25 mmol/L (21-32); Calcium, Blood 8.2 mg/dL (8.5-10.1); Chloride, Blood 110 mmol/L (98-108); Creatinine, Blood 0.82 mg/dL (0.60-1.20); Globulin, Blood 3.6 g/dL (2.2-4.0); Glomerular Filtration Rate >60 (60-); Glucose, Blood 63 mg/dL (70-99); Magnesium, Blood 2.1 mg/dL (1.6-2.4); Potassium, Blood 3.6 mmol/L (3.5-5.5); Sodium, Blood 141 mmol/L (136-145); Total Protein, Blood 6.3 g/dL (6.4-8.2)
--- NOTE | 2021-02-28 17:58 | NUR ---
PATIENT IS A/O & INDEPEDENT IN ROOM. PATIENT WAS STARTED ON AN PO ANTIBIOTIC THIS SHIFT AND HAS BEEN TOLERATING WELL.PATIENT IS STILL NPO WITH CHIPS AND SIPS. PATIENT CONTINUES TO RECEIVE 125ML/HR NS. PATIENT'S PAIN HAS BEEN MONITORED THROUGH OUT THE SHIFT WITH MEDICATION AND REPOSTIONING.
--- NOTE | 2021-03-01 05:09 | NUR ---
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 KPAd provided & helful effect reported. NPO except few ice & sip with meds. Discussed need to avoid ETOH if it is causing pancreatits. Verbalized understanding,
--- NOTE | 2021-03-01 14:46 | NUR ---
ASSUMED CARE OF PT FROM DEBBIE HARRIS RN AT THIS TIME.
--- NOTE | 2021-03-01 18:34 | NUR ---
SHIFT SUMMARY PT A/O X3; PLEASANT AND COOPERATIVE WITH CARE. C/O PAIN OFTEN IN THE UPPER ABD AND TREATED PER EMR WITH GOOD EFFECT. TOLERATING CLEAR LIQUID DIET WELL. VSS. WILL REPORT TO ADEOLA MEZA.
--- NOTE | 2021-03-02 05:06 | NUR ---
MINIBUS DRIVER SUMMARY PT AAOX4 AND PLEASANT. TOLERATING CLEAR LIQUID DIET WITH NO ISSUES. PAIN CONTROL HAS BEEN BETTER TONIGHT, PT ONLY REQUIRING IV DILAUDID EVERY 5 HOURS. PT HOPING TO ADVANCE DIET LATER TODAY. VSS, WILL CONTINUE TO MONITOR.
[2021-03-02 05:51] LABS: BASOPHILS ABSOLUTE AUTO 0.01 K/mm3 (0.00-0.23); BASOPHILS PERCENT AUTO 0 % (0-2); EOSINOPHILS ABSOLUTE AUTO 0.09 K/mm3 (0.00-0.68); EOSINOPHILS PERCENT AUTO 1 % (0-6); Hematocrit 32.6 % (37.0-53.0); Hemoglobin 9.8 g/dL (13.5-17.5); IMMATURE GRAN ABSOLUTE AUTO 0.02 K/mm3 (0.00-0.10); IMMATURE GRAN PERCENT AUTO 0 % (0-1); LYMPHOCYTES ABSOLUTE AUTO 1.96 K/mm3 (0.84-5.20); LYMPHOCYTES PERCENT AUTO 29 % (21-46); MONOCYTES ABSOLUTE AUTO 0.83 K/mm3 (0.16-1.47); MONOCYTES PERCENT AUTO 12 % (4-13); Mean Corpuscular HGB 25.1 pg (26.0-34.0); Mean Corpuscular HGB Conc 30.1 g/dL (31.5-36.5); Mean Corpuscular Volume 84 fL (80-100); Mean Platelet Volume 9.6 fL (9.1-12.4); NEUTROPHILS PERCENT AUTO 57 % (41-73); Platelet Count 256 K/mm3 (150-400); RDW Coefficient Variation 16.8 % (11.7-14.2); RDW Standard Deviation 50.9 fL (35.1-46.3); White Blood Cell Count 6.81 K/mm3 (4.00-11.30)
[2021-03-02 06:14] LABS: Alanine Aminotransfer (ALT/SGP 27 U/L (12-78); Albumin, Blood 2.6 g/dL (3.4-5.0); Albumin/Globulin Ratio 0.7 (0.8-1.8); Alk Phos 100 U/L (50-136); Anion Gap 6 mmol/L (6-16); Aspartate Aminotrans (AST/SGOT 24 U/L (12-37); Bilirubin, Total 0.5 mg/dL (0.1-1.0); Blood Urea Nitrogen 6 mg/dL (8-24); Bun/Creatinine Ratio 6.8 (12.0-20.0); CO2, Blood 25 mmol/L (21-32); Calcium, Blood 8.2 mg/dL (8.5-10.1); Chloride, Blood 112 mmol/L (98-108); Creatinine, Blood 0.88 mg/dL (0.60-1.20); Globulin, Blood 3.5 g/dL (2.2-4.0); Glomerular Filtration Rate >60 (60-); Glucose, Blood 102 mg/dL (70-99); Potassium, Blood 3.5 mmol/L (3.5-5.5); Sodium, Blood 143 mmol/L (136-145); Total Protein, Blood 6.1 g/dL (6.4-8.2)
--- NOTE | 2021-03-02 16:50 | NUR ---
SHIFT SUMMARY NO ACUTE CHANGES T/O SHIFT, A&O, COOPERATIVE c CARE, INDEPENDENT IN ROOM. PT REPORTS PAIN IN ABD AND IS TREATED PER EMAR AND HEATING PAD. HE DOES STATE THAT PAIN IS WORSE c MOVEMENT/PALPATION AND NOT SO MUCH EATING. ADVANCED TO FULL LIQUID DIET AND IS TOLERATING THIS WELL. NO N/V NOTED. FLUIDS CONTINUE @ 125 ML/HR. PT IS CURRENTLY RESTING IN BED c CALL LIGHT WITHIN REACH. CALLS APPROPRIATELY.
--- NOTE | 2021-03-03 04:12 | NUR ---
SHIFT SUMMARY ADMITTED FOR PANCREATITIS. FULL CODE. PLAN IS TO ADVANCE DIET TO SEE IF TOLERATED, CURRENTLY FULL LIQUID DIET. NS INFUSING @ 125 ML/HR. HE REQUESTED THE IV PAIN MEDICATION X2 THIS SHIFT. HE IS INDEPENDENT IN THE ROOM. .
[2021-03-03] MEDS ORDERED: METO50ER PO (10:16)
[2021-03-03] MEDS ORDERED: LEVFLO500 PO (10:17)
--- NOTE | 2021-03-03 13:35 | NUR ---
DISCHARGE SUMMARY PT DISCHARGE THIS SHIFT AT 1250. PT VERBALIZED UNDERSTANDING OF DISCHARGE ORDERS AND TEACHINGS. NO COMPLAINTS OR CONCERNS NOTED FROM PT DURING DISCHARGE PROCESS. DENIES ANY DISCOMFORT. IV LINE DISCONTINUED PRIOR TO DISCHARGE. PT TOLERATED FULL LIQUID DIET FOR BREAKFAST AND LUNCH. NO C/O ANY N&V OR ANY OTHER ABDOMINAL DISCOMFORT PRIOR TO DISCHARGE. DISCHARGE PACKET GIVEN TO PATIENT UPON DISCHARGE.
== END 2021-03-03 13:02 | disposition home or self-care (01) | DRG 438 ==
LOC: ER 08:59 → MEDS 12:28
PROVIDERS: Internal Medicine; Nurse Practitioner Acute Care; Physician Assistant; Student in an Organized Health Care Education/Training Program; ADMIT Internal Medicine
DX: K85.20 Alcohol induced acute pancreatitis without necrosis or infection (principal); J18.9 Pneumonia, unspecified organism; I48.92 Unspecified atrial flutter; I50.22 Chronic systolic (congestive) heart failure; R65.10 Systemic inflammatory response syndrome (SIRS) of non-infectious origin without acute organ dysfunction; K92.0 Hematemesis; J43.9 Emphysema, unspecified; E78.5 Hyperlipidemia, unspecified; D63.8 Anemia in other chronic diseases classified elsewhere; K21.9 Gastro-esophageal reflux disease without esophagitis; I11.0 Hypertensive heart disease with heart failure; N40.0 Benign prostatic hyperplasia without lower urinary tract symptoms; L40.9 Psoriasis, unspecified; I25.10 Atherosclerotic heart disease of native coronary artery without angina pectoris; Z71.41 Alcohol abuse counseling and surveillance of alcoholic; I25.2 Old myocardial infarction; Z87.891 Personal history of nicotine dependence; Z95.5 Presence of coronary angioplasty implant and graft; Z98.890 Other specified postprocedural states; Z88.0 Allergy status to penicillin; Z79.82 Long term (current) use of aspirin; Z79.899 Other long term (current) drug therapy
CPT/HCPCS: 36415; 74176; 80053; 82272; 82465; 83690; 83735; 84478; 84484; 85025; 94640; 94664; 94760; 96374; 96375; 96376; 99285-25; A9270; J1170; J1650; J1940; J3010; J7030

== ENCOUNTER 2022-05-19 09:06 | Emergency (ER) | payer OTHER ==
[~2022-05-19] VITALS: Ht 172.7 cm; Wt 58.5 kg
[~2022-05-19 09:06] MED LIST changes: +ATOR40TA PO; +Amiodarone HCl200 MG PO; +Aspir 8181 MG PO; +CLOP75 PO; +DULERA 200 MCG-13 GM INH; +FISH OIL 1,2001 EAC7 PO; +HYDROCODONE-AC1 EA10 PO; +Hair, Skin & N1 EACH PO; +ISOSORBIDE MONO60 MG PO; +LEVFLO500 PO; +METO50 PO; +SPIRIVA RESPIMAT4 G3 INH; +TERA5 PO
[2022-05-19 09:58] LABS: BASOPHILS ABSOLUTE AUTO 0.05 K/mm3 (0.00-0.23); BASOPHILS PERCENT AUTO 1 % (0-2); EOSINOPHILS PERCENT AUTO 0 % (0-6); Hematocrit 39.9 % (37.0-53.0); Hemoglobin 13.4 g/dL (13.5-17.5); IMMATURE GRAN ABSOLUTE AUTO 0.26 K/mm3 (0.00-0.10); IMMATURE GRAN PERCENT AUTO 3 % (0-1); LYMPHOCYTES ABSOLUTE AUTO 2.39 K/mm3 (0.84-5.20); LYMPHOCYTES PERCENT AUTO 28 % (21-46); MONOCYTES ABSOLUTE AUTO 0.92 K/mm3 (0.16-1.47); MONOCYTES PERCENT AUTO 11 % (4-13); Mean Corpuscular HGB 36.9 pg (26.0-34.0); Mean Corpuscular HGB Conc 33.6 g/dL (31.5-36.5); Mean Corpuscular Volume 110 fL (80-100); Mean Platelet Volume 10.5 fL (9.1-12.4); NEUTROPHILS ABSOLUTE AUTO 4.96 K/mm3 (1.96-9.15); NEUTROPHILS PERCENT AUTO 58 % (41-73); Platelet Count 235 K/mm3 (150-400); RDW Standard Deviation 61.9 fL (35.1-46.3); Red Blood Cell Count 3.63 M/mm3 (4.30-5.90); White Blood Cell Count 8.58 K/mm3 (4.00-11.30)
[2022-05-19 10:08] LABS: Bun/Creatinine Ratio 14.1 (12.0-20.0); Calcium, Blood 9.2 mg/dL (8.5-10.1); Creatinine, Blood 0.57 mg/dL (0.60-1.20); Potassium, Blood 3.4 mmol/L (3.5-5.5)
[2022-05-19] MEDS ORDERED: CEFD300 PO (10:54)
[2022-05-19] MEDS ORDERED: HYDR1TAB94 PO (10:56)
--- NOTE | 2022-05-19 12:00 | NUR ---
Brief visit to ER to provide pt with community resource information and discuss plan for increased help at home. Pt is cachectic and frail appearing. He looks much older than his chronological age. 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 She is not ambulatory and he reports having growing difficulty with transfers and lifting to provide care. He has care giving assistance M-F for approx 6 hours weekdays but no help on the weekends, evenings or nights. Inst pt to call CW for tomorrow am to report his own illness and need for assist as well as additional hours of cg for his . Pt's deyvi is here for the next week and can assist with 's care while pt recuperates, per pt. Discussed alternate living arrangements so that pt AND spouse could receive more support. He states they have started discussing this and I asked that he speak with CW about this also and what their options are. He was unclear if CW was thru [facility] or [facility]. He stated CW recently changed and he cannot remember new CW's name right now. Brochures for CG agencies and Community resources given to pt.
== END 2022-05-19 11:55 | disposition home or self-care (01) ==
LOC: ER 09:06
PROVIDERS: Emergency Medicine
DX: N45.3 Epididymo-orchitis (principal); J43.9 Emphysema, unspecified; I10 Essential (primary) hypertension; E78.5 Hyperlipidemia, unspecified; I25.2 Old myocardial infarction; Z79.899 Other long term (current) drug therapy; Z79.82 Long term (current) use of aspirin; Z79.02 Long term (current) use of antithrombotics/antiplatelets
CPT/HCPCS: 36415; 76870; 80048; 85025; J2405; J3010

== ENCOUNTER 2022-06-30 04:28 | Emergency (ER) | payer OTHER ==
[~2022-06-30] VITALS: Ht 175.3 cm; Wt 54.4 kg
[~2022-06-30 04:28] MED LIST changes: +CEFD300 PO
[2022-06-30 04:54] LABS: BASOPHILS ABSOLUTE AUTO 0.01 K/mm3 (0.00-0.23); BASOPHILS PERCENT AUTO 0 % (0-2); EOSINOPHILS PERCENT AUTO 0 % (0-6); Hematocrit 38.6 % (37.0-53.0); Hemoglobin 13.7 g/dL (13.5-17.5); IMMATURE GRAN ABSOLUTE AUTO 0.04 K/mm3 (0.00-0.10); IMMATURE GRAN PERCENT AUTO 1 % (0-1); LYMPHOCYTES ABSOLUTE AUTO 1.29 K/mm3 (0.84-5.20); LYMPHOCYTES PERCENT AUTO 19 % (21-46); MONOCYTES PERCENT AUTO 6 % (4-13); Mean Corpuscular HGB 37.4 pg (26.0-34.0); Mean Corpuscular HGB Conc 35.5 g/dL (31.5-36.5); Mean Corpuscular Volume 106 fL (80-100); Mean Platelet Volume 9.8 fL (9.1-12.4); NEUTROPHILS ABSOLUTE AUTO 5.06 K/mm3 (1.96-9.15); NEUTROPHILS PERCENT AUTO 74 % (41-73); NRBC ABSOLUTE 0.02 K/mm3 (0.00-0.02); NRBC Auto 0.3 /100 WBC (0.0-0.2); Platelet Count 104 K/mm3 (150-400); RDW Coefficient Variation 15.9 % (11.7-14.2); RDW Standard Deviation 61.8 fL (35.1-46.3); Red Blood Cell Count 3.66 M/mm3 (4.30-5.90)
[2022-06-30 05:29] LABS: Albumin, Blood 2.4 g/dL (3.4-5.0); Albumin/Globulin Ratio 0.6 (0.8-1.8); Bilirubin, Total 1.3 mg/dL (0.1-1.0); Bun/Creatinine Ratio 28.9 (12.0-20.0); Calcium, Blood 7.7 mg/dL (8.5-10.1); Creatinine, Blood 0.52 mg/dL (0.60-1.20); Globulin, Blood 3.7 g/dL (2.2-4.0); Potassium, Blood 3.1 mmol/L (3.5-5.5); Total Protein, Blood 6.1 g/dL (6.4-8.2)
[2022-06-30] MEDS ORDERED: ONDA4ODT MM (07:05)
[2022-06-30] MEDS ORDERED: OXAYDO5 M1 PO (07:05)
== END 2022-06-30 07:52 | disposition home or self-care (01) ==
LOC: ER 04:28
PROVIDERS: Student in an Organized Health Care Education/Training Program
DX: K85.90 Acute pancreatitis without necrosis or infection, unspecified (principal); J43.9 Emphysema, unspecified; I10 Essential (primary) hypertension; E78.5 Hyperlipidemia, unspecified; I25.2 Old myocardial infarction; Z88.0 Allergy status to penicillin; Z79.899 Other long term (current) drug therapy; Z79.82 Long term (current) use of aspirin; Z79.02 Long term (current) use of antithrombotics/antiplatelets
CPT/HCPCS: 36415; 71045; 80053; 83690; 84484; 85025; 93005; 93010; A9270; J2270